=== PATIENT | male | born 1940 | race Caucasian/White ===

== ENCOUNTER → 2017-08-17 | Outpatient (CLI) | payer MEDICARE | END | disposition home or self-care (01) | LOC: CFH 10:33 | PROVIDERS: ATTEND Internal Medicine Hematology & Oncology | DX: K76.89 Other specified diseases of liver (principal); N28.1 Cyst of kidney, acquired; N43.3 Hydrocele, unspecified; I86.1 Scrotal varices | CPT/HCPCS: 76700; 76857; 76870 ==